=== PATIENT | male | born 1945 | race Caucasian/White ===

== ENCOUNTER → 2016-09-10 | Outpatient (CLI) | payer OTHER, BC | LOC: FIMAGING 15:35 | PROVIDERS: ATTEND Internal Medicine | DX: R41.82 Altered mental status, unspecified (principal); F68.8 Other specified disorders of adult personality and behavior; Z86.73 Personal history of transient ischemic attack (TIA), and cerebral infarction without residual deficits; M15.4 Erosive (osteo)arthritis ==

== ENCOUNTER → 2016-09-24 | Outpatient (CLI) | payer OTHER, BC | LOC: FIMAGING 08:21 | PROVIDERS: ATTEND Internal Medicine | DX: E83.52 Hypercalcemia (principal); N28.9 Disorder of kidney and ureter, unspecified ==

== ENCOUNTER → 2016-09-24 | Outpatient (CLI) | payer OTHER, BC | LOC: FIMAGING 08:28 | PROVIDERS: ATTEND Internal Medicine | DX: E83.52 Hypercalcemia (principal) ==